=== PATIENT | female | born 1945 | race Caucasian/White ===

== ENCOUNTER 2021-01-12 14:08 | Outpatient (CLI) | payer MEDICARE, OTHER, SELFPAY ==
--- NOTE | 2021-01-12 14:22 | XR_ITS ---
WS: [id number] ANKLE RIGHT TECHNIQUE: 3 views of the right ankle CLINICAL INFORMATION: INJURY OF RIGHT ANKLE, INITIAL ENCOUNTER COMPARISON: None. FINDINGS: Mild soft tissue edema. Normal ankle mortise. Chronic appearing tiny avulsion about the tip of the la teral malleolus. Normal medial malleolus. No acute fractures. XR/XR ankle RT min 3V* [id number] IMPRESSION: Mild soft tissue edema. No acute fractures.
== END 2021-01-12 14:09 | disposition home or self-care (01) ==
PROVIDERS: Visit Provider Nurse Practitioner Family
DX: S99.911A Unspecified injury of right ankle, initial encounter (principal); X58.XXXA Exposure to other specified factors, initial encounter; R60.0 Localized edema
CPT/HCPCS: 73610